=== PATIENT | male | born 1985 | race Caucasian/White ===

== ENCOUNTER 2019-11-01 19:39 | Emergency (ER) | payer SELFPAY ==
[2019-11-01] MEDS ORDERED: Sodium Chloride 0.9% 10 ML Syringe FLUSH PRN ×2 (19:57→20:41)
[2019-11-01] MEDS ORDERED: HYDROmorphone 1 MG/ML Syringe IVPUSH ONE (20:13)
[2019-11-01] MEDS ORDERED: FLU Vacc QS2019-20(6MOS+)/PF 60 MCG/0.5 ML SYRINGE IM ONE (20:15)
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
[2019-11-01] MEDS ORDERED: Iopamidol 612 MG/ML 100 ML Bottle IVPUSH ONE (20:41)
--- NOTE | 2019-11-01 21:10 | CT ---
CT facial bones Technique: Multiple axial sections through the facial bones were obtained. Reconstructed coronal and sagittal images were obtained. Findings: Visualized paranasal sinuses show nothing acute. Right and left globes are symmetric. No retrobulbar abnormality is identified. No facial bone fracture is appreciated. Impression: 1. Nothing acute is appreciated on CT study of the facial bones. Diagnostic code #1 Study was dictated in MDT
--- NOTE | 2019-11-01 21:13 | CT ---
CT cervical spine Technique: Multiple axial sections were obtained from above C1 inferiorly to the top of T3. Reconstructed sagittal and coronal images were reviewed. Comparison: No prior cervical spine imaging. Findings: Mild disc space narrowing with posterior osteophytes are seen at C5-C6. Mild right-sided neural foraminal stenosis is noted at C3-C4. Mild left-sided and right-sided neural foraminal stenosis is noted at C5-C6. Other neural foramina are patent. No central canal stenosis is seen. No cervical spine fracture is seen. No abnormal subluxation is appreciated. Slight degenerative uncovertebral change is seen which is most prominent at C5-C6. Minimal scoliosis is noted. Impression: 1. Minimal degenerative change with slight scoliosis which is possibly positional. 2. Nothing acute is appreciated on CT study of the cervical spine. Diagnostic code #2 Study was dictated in MDT
--- NOTE | 2019-11-01 21:17 | CT ---
CT chest Technique: Multiple axial sections through the chest were obtained. Intravenous contrast was utilized. Reconstructed coronal and sagittal images were reviewed. Findings: Ascending aorta is slightly ectatic at 3.6 cm. Descending aorta is 2.4 cm. Mediastinum shows no adenopathy. No mediastinal hematoma is seen. No axillary adenopathy is seen. No pericardial fluid is appreciated. Lungs show no acute parenchymal change. No pleural effusions or pneumothorax is seen. Bone window settings were reviewed no discrete rib fracture is appreciated. Vertebral body heights and disc spaces are maintained within the thoracic spine. Sternum appears intact on the reconstructed sagittal images. Impression: 1. Slightly ectatic ascending aorta 3.6 cm. 2. Nothing acute is appreciated on CT study of the chest. Diagnostic code #2 CT abdomen and pelvis Technique: Multiple axial sections were obtained from above the dome of the diaphragm inferiorly through the pubic symphysis. Intravenous contrast was utilized. No oral contrast has been given. Comparison: No prior abdominal imaging. Findings: Liver contains no focal parenchymal abnormality. Spleen appears within normal limits. Gallbladder contains no calcified gallstones. Adrenal glands appear within normal limits. Kidneys show symmetric contrast enhancement without hydronephrosis or mass. Pancreas is within normal limits. Aorta shows no aneurysm. No retroperitoneal adenopathy or mesenteric abnormalities are seen. Appendix is seen and appears normal in size. No pelvic mass or adenopathy is noted. No free fluid or inflammatory change is seen. Bone window settings were reviewed. Vertebral body heights and disc spaces are maintained within the lumbar spine. No discrete fracture is appreciated within the lumbar spine. Bony pelvis shows no discrete fracture. Impression: 1. Nothing acute is seen on CT study of the abdomen and pelvis. Diagnostic code #1 Study was dictated in MDT
--- NOTE | 2019-11-01 21:19 | CT ---
Head CT Technique: Multiple axial sections through the brain were obtained. Intravenous contrast was not utilized. Comparison: No prior intracranial imaging is available. Findings: Ventricles along with basal cisterns and sulci over the convexities are within normal limits for the patient's age. No abnormal parenchymal densities are seen. No evidence of intracranial hemorrhage. No midline shift or mass effect is seen. No acute calvarial abnormality is seen. No acute findings within the mastoid sinuses or paranasal sinuses are seen. Impression: 1. Nothing acute is appreciated on noncontrast head CT exam. Diagnostic code #1 Study was dictated in MDT
== END 2019-11-01 22:08 | disposition home or self-care (01) ==
LOC: JD.ED 19:39
DX: S00.83XA Contusion of other part of head, initial encounter (principal); S20.212A Contusion of left front wall of thorax, initial encounter; F17.210 Nicotine dependence, cigarettes, uncomplicated; V69.9XXA Occupant (driver) (passenger) of heavy transport vehicle injured in unspecified traffic accident, initial encounter
CPT/HCPCS: 36415; 70450; 70486; 71260; 72125; 74177; 80053; 80306; 80307; 81001; 83690; 85025; 96374; 99285; J1170; Q9967; 99284